=== PATIENT | male | born 1950 ===

== ENCOUNTER → 2016-06-28 | Outpatient (CLI) | payer MEDICARE, MEDICAID ==
[~2016-06-28] MED LIST: ALDACTAZIDE 251 EACH PO; LIPITOR40 MG PO; PRILOSEC20 MG PO; RYTHMOL150 MG PO; SUPREP BOWEL P354 ML; TOPROL XL 5050 MG PO; TUMS REGULAR ST1 TAB PO
== END | disposition disaster alternative care site (69) ==
LOC: GAMB 17:49
DX: F41.9 Anxiety disorder, unspecified (principal); R42 Dizziness and giddiness; Z79.899 Other long term (current) drug therapy
CPT/HCPCS: A0425; A0427

== ENCOUNTER → 2016-07-22 | Outpatient (CLI) | payer MEDICARE, MEDICAID ==
[2016-07-22 13:24] LABS: ANION GAP 14.1 (10.0-19.0); BLOOD UREA NITROGEN 17 mg/dL (6-24); CALCIUM 8.9 mg/dL (8.5-10.5); CHLORIDE 100 mMol/L (96-110); CO2 28 mMol/L (22-32); CREATININE 1.1 mg/dL (0.6-1.3); ESTIMATED GFR (MDRD EQUATION) > 60; POTASSIUM 4.1 mMol/L (3.7-5.1); SODIUM 138 mMol/L (135-145)
== END | disposition disaster alternative care site (69) ==
LOC: LGSOS 13:11
PROVIDERS: Internal Medicine Interventional Cardiology
DX: R07.9 Chest pain, unspecified (principal)

== ENCOUNTER 2016-07-31 11:28 | Emergency (ER) | payer MEDICARE, MEDICAID ==
--- NOTE | ~2016-07-31 | ER ---
PATIENT'S NAME: MUSTAPHA [facility] AGE: 66 Y [address] ROOM: [place] [address] LOCATION: [facility] ADMIT DATE: 07/31/2016 ER/Outpatient Report DISCHARGE DATE: FAMILY PHYSICIAN: Josemanuel Winn MD ATTENDING PHYSICIAN: Gallito Brooks TIME OF ARRIVAL: 1135 hours. TIME OF EVALUATION: 1135 hours. CHIEF COMPLAINT: Chest pain. HISTORY OF PRESENT ILLNESS: The patient is a 66-year-old male who presents to the emergency department today with a chief complaint of chest pain. He reports that he has a history of similar episodes in the past. He reports that it is not really chest pain, that he just has some sharp twinges at times. He does report that he gets dizzy whenever he sits up. He did take a full aspirin prior to arrival. The patient was recently admitted to the hospital and underwent a cardiac stress test less than a month ago. It was unremarkable. Echocardiogram showed 60% EF with mild concentric left ventricular hypertrophy. The patient denies any fevers or chills. No nausea or vomiting. No diarrhea or constipation. No chest pain. No shortness of breath. No ripping or tearing sensation. No radiation to his back. No history of PE or DVT. PAST MEDICAL HISTORY: Hypertension, ulcers, and irregular heartbeat. PAST SURGICAL HISTORY: None. SOCIAL HISTORY: The patient denies any tobacco, alcohol, or illicit drug use. ALLERGIES: KEFLEX. MEDICATIONS: Please see list. REVIEW OF SYSTEMS: All systems are reviewed by myself and are negative with the exception of PATIENT'S NAME: MUSTAPHA [facility] AGE: 66 Y [address] ROOM: [place] [address] LOCATION: [facility] ADMIT DATE: 07/31/2016 ER/Outpatient Report DISCHARGE DATE: FAMILY PHYSICIAN: Josemanuel Winn MD ATTENDING PHYSICIAN: Gallito Brooks those discussed in the HPI and Past Medical History. PHYSICAL EXAMINATION: VITAL SIGNS: 172 pounds, 138/83, pulse 76, respiratory rate 20, temperature 98.6, and oxygen saturation 98% on room air. GENERAL: The patient is a 66-year-old male who appears his stated age, in no acute distress at this time. HEENT: Normocephalic, atraumatic. Pupils are equal, round, and reactive to light and accommodation. Extraocular motions are intact. Nares are patent bilaterally. TMs are clear. Oropharynx is clear. NECK: Supple. There is no nuchal rigidity. CARDIOVASCULAR: Regular rate and rhythm. No murmurs, rubs, or gallops. LUNGS: Clear to auscultation bilaterally. No wheezes, rales, or rhonchi. ABDOMEN: Soft, nontender, and nondistended. No rebound, rigidity, or guarding. MUSCULOSKELETAL: The patient moves all 4 extremities. SKIN: Warm and dry. There are no rashes or lesions noted. LABORATORY AND DIAGNOSTIC DATA: Labs and x-rays are obtained. EKG is obtained, is interpreted by myself, and shows sinus rhythm with a rate of 70, left axis deviation, and normal interval. No ST elevation or ST depression. Nonspecific T-wave inversions. CMP is unremarkable. LFTs are normal. Magnesium is normal. Chest x-ray shows no acute process. Coags are normal. CK is normal. CK-MB and troponin are normal. ProBNP is 163. D-dimer is normal. CBC is normal. IMPRESSION: 1. Chest pain, unclear etiology. 2. Initial visit. EMERGENCY DEPARTMENT COURSE: The patient was brought back to the examination room. Seen and evaluated by myself. IV was established. Laboratory analysis and imaging were obtained as described above. The patient was given aspirin prior to arrival. I have discussed the results with the patient, and he has no pain at this time. I have discussed 2-hour cardiac enzymes. The patient does not wish to do that at this time. He reports he would rather go home. He does not want to wait. I have discussed risks and benefits of not doing these including not fully ruling out a heart attack. I have discussed potential ramifications of this could be severe disability or . I have discussed return to care instructions for any worsening symptoms or any other concerns, to return to the emergency department as soon as possible. I have contacted Dr. Josemanuel Winn and discussed the case with him. He will follow up with the patient. The patient is also instructed to follow up with Dr. Hubbard for any worsening symptoms or any other concerns. PATIENT'S NAME: MUSTAPHA [facility] AGE: 66 Y [address] ROOM: [place], [place] [address] LOCATION: [facility] ADMIT DATE: 07/31/2016 ER/Outpatient Report DISCHARGE DATE: FAMILY PHYSICIAN: Josemanuel Winn MD ATTENDING PHYSICIAN: Gallito Brooks DISPOSITION: The patient is discharged to home in good condition. DO SONIA STEWART/jacklyn /[id number] d: 07/31/16 1510 t: 07/31/16 1702, OUTPATIENT REPORT
[2016-07-31 11:43] LABS: BASOPHIL % 0.6 %; EOSINOPHIL # 0.2 K/uL (0.0-0.5); EOSINOPHIL % 2.1 %; HEMOGLOBIN 15.3 g/dL (11.0-16.0); IMMATURE GRANULOCYTE % 0.1 %; LYMPHOCYTE # 2.8 K/uL (0.8-4.0); LYMPHOCYTE % 40.3 %; MCH 31.6 pg (27.0-34.0); MCHC 34.8 gm/dL (32.0-36.5); MCV 90.9 fl (83.0-98.0); MONOCYTE % 13.8 %; NEUTROPHIL % 43.1 %; NRBC % 0 /100WBC (0-0.00); PLATELET COUNT 190 K/uL (150-450); RBC 4.84 M/uL (3.50-5.50); RDW-CV 12.5 % (11.9-14.6)
[2016-07-31 11:51] LABS: INR - (THERAPEUTIC) 1.1 (0.9-1.1); PROTIME 11.1 SECONDS (9.6-11.1); PTT 26 SECONDS (25-32)
[2016-07-31 12:01] LABS: ALBUMIN 3.8 gm/dL (3.5-5.0); ALK PHOS 75 IU/L (33-138); ALT 78 IU/L (12-78); ANION GAP 15.6 (10.0-19.0); AST 40 IU/L (10-40); BLOOD UREA NITROGEN 15 mg/dL (6-24); CALCIUM 8.7 mg/dL (8.5-10.5); CHLORIDE 102 mMol/L (96-110); CO2 25 mMol/L (22-32); CPK 163 IU/L (35-332); CREATININE 1.1 mg/dL (0.6-1.3); ESTIMATED GFR (MDRD EQUATION) > 60; MAGNESIUM 1.8 mg/dL (1.3-2.6); POTASSIUM 3.6 mMol/L (3.7-5.1); SODIUM 139 mMol/L (135-145); TOTAL PROTEIN 7.2 g/dL (6.0-8.4)
[2016-07-31 12:02] LABS: TOTAL BILIRUBIN 0.9 mg/dL (0.0-1.5)
== END 2016-08-02 12:55 | disposition disaster alternative care site (69) ==
LOC: GMED 11:28
PROVIDERS: Emergency Medicine
DX: R07.9 Chest pain, unspecified (principal); I10 Essential (primary) hypertension; Z88.1 Allergy status to other antibiotic agents; Z79.899 Other long term (current) drug therapy

== ENCOUNTER → 2016-07-31 | Outpatient (CLI) | payer MEDICARE, MEDICAID | END | disposition disaster alternative care site (69) | LOC: GAMB 11:10 | DX: I20.9 Angina pectoris, unspecified (principal); R07.9 Chest pain, unspecified; Z79.899 Other long term (current) drug therapy | CPT/HCPCS: A0425; A0427 ==

== ENCOUNTER → 2016-10-20 | Outpatient (CLI) | payer MEDICARE, MEDICAID ==
[2016-10-20 09:48] LABS: ALBUMIN 4.1 gm/dL (3.5-5.0)
[2016-10-20 09:49] LABS: TOTAL BILIRUBIN 1.3 mg/dL (0.0-1.5)
[2016-10-21 10:11] LABS: BLOOD UREA NITROGEN 14 mg/dL (6-24); CALCIUM 9.1 mg/dL (8.5-10.5); CHLORIDE 104 mMol/L (96-110); CO2 27 mMol/L (22-32); CREATININE 1.1 mg/dL (0.6-1.3); ESTIMATED GFR (MDRD EQUATION) > 60; SODIUM 138 mMol/L (135-145)
== END ==
LOC: LGSOS 09:16
PROVIDERS: Internal Medicine Interventional Cardiology
DX: I10 Essential (primary) hypertension (principal)